=== PATIENT | male | born 1970 | race Caucasian/White ===

== ENCOUNTER 2018-01-13 17:24 | Emergency (ER) | payer OTHER ==
--- NOTE | 2018-01-13 17:48 | UC ---
Throat Pain/Nasal Jigar HPI - HPI Summary HPI Summary: 47 y/o male presents to the urgent care c/o sore throat w/ mild nasal congestion and dry cough for the past 2 days. Pt noticed this morning his tongue has a white coat. Pain w/ swallowing is 6/10. Pt has taken Nyquill PO to alleviate symptoms. Pt feels fatigue today. Pt denies fever, SOB, chest pain, wheezing,abdominal pain, N/V/D. - History of Current Complaint Stated Complaint: THROAT COMPLAINT Time Seen by Provider: 01/13/18 17:47 Hx Obtained From: Patient Onset/Duration: Gradual Onset, Lasting Days - 2 days, Still Present, Worse Since - today Severity: Moderate Pain Intensity: 6 Pain Scale Used: 0-10 Numeric Cough: Nonproductive Associated Signs & Symptoms: Positive: Dysphagia, Nasal Discharge, Fever - low grade fever first day - Epiglottits Risk Factors Epiglottis Risk Factors: Negative - Allergies/Home Medications Allergies/Adverse Reactions: Allergies Allergy/AdvReac Type Severity Reaction Status Date / Time No Known Allergies Allergy Verified 01/13/18 17:49 Home Medications: Home Medications lamoTRIgine TAB(*) [Lamictal TAB(*)] 100 mg PO BEDTIME 01/13/18 [History Confirmed 01/13/18] PMH/Surg Hx/FS Hx/Imm Hx Previously Healthy: Yes Neurological History: Seizures - Surgical History Surgical History: None - Family History Known Family History: Positive: None - Pt denies FMHX Negative: Cardiac Disease, Hypertension, Diabetes - Social History Occupation: Employed Full-time Lives: With Family Alcohol Use: None Substance Use Type: None Smoking Status (MU): Never Smoked Tobacco Have You Smoked in the Last Year: No - Immunization History Most Recent Influenza Vaccination: Not the 2016/2016 Season Most Recent Tetanus Shot: 11/27/15 Review of Systems Constitutional: Negative Skin: Negative Eyes: Negative ENT: Sore Throat, Nasal Discharge, Sinus Congestion Respiratory: Cough - dry Cardiovascular: Negative Gastrointestinal: Negative Genitourinary: Negative Motor: Negative Neurovascular: Negative Musculoskeletal: Negative Neurological: Negative Psychological: Negative Is Patient Immunocompromised?: No All Other Systems Reviewed And Are Negative: Yes Physical Exam - Summary Physical Exam Summary: VITAL SIGNS: Reviewed. GENERAL: Patient is a well developed and nourished male who is sitting comfortable in the examining table. Patient is not in any acute respiratory distress. HEAD AND FACE: No signs of trauma. No ecchymosis, hematomas or skull depressions. No sinus tenderness. EYES: PERRLA, EOMI x 2, No injected conjunctiva, no nystagmus. No photophobia. EARS: Hearing grossly intact. Ear canals and tympanic membranes are within normal limits. MOUTH: Positive pharynx with erythema, no exudates, mild palatal petechiae. B/L tonsillar enlargement with no exudate. Uvula in midline. No Tenderness to percussion of teeth . tongue w. mild creamy white plaques adhered. NECK: Supple, trachea is midline, Positive anterior cervical lymphadenopathy, no JVD, no carotid bruit, no c-spine tenderness, neck with full ROM. No meningeal signs, no Kernig's or brudzinskis signs. CHEST: Symmetric, no tenderness at palpation LUNGS: Clear to auscultation bilaterally. No wheezing or crackles. CVS: Regular rate and rhythm, S1 and S2 present, no murmurs or gallops appreciated. ABDOMEN: Soft, non-tender. No signs of distention. No rebound no guarding, and no masses palpated. Bowel sounds are normal. EXTREMITIES: FROM in all major joints, no edema, no cyanosis or clubbing. NEURO: Alert and oriented x 3. No acute neurological deficits. Speech is normal and follows commands. SKIN: Dry and warm Triage Information Reviewed: Yes Throat Pain/Nasal Course/Dx - Course Course Of Treatment: 47 y/o male presents to the urgent care c/o sore throat w/ mild nasal congestion and dry cough for the past 2 days. Pt noticed this morning his tongue has a white coat. Pain w/ swallowing is 6/10. Pt has taken Nyquill PO to alleviate symptoms. Pt feels fatigue today. Pt denies fever, SOB, chest pain, wheezing,abdominal pain, N/V/D. Hx obtained. Pt w/ oral Candidiasis and pharyngitis on examination. RApid strep ordered: negative.Pt Rx Nystatin PO switch and swallow and Chlorhexidine and Ibuprofen PO as directed below to alleviate symptoms. Pt advised to rest, increase fluid intake, eat well and avoid strenuous exercise. If symptoms do not improve or worsen advised to return to the urgent care or f/u with her PCP in 3 days for further evaluation and treatment. Pt understood and agreed with plan of care. - Differential Dx/Diagnosis Differential Diagnosis/HQI/PQRI: Laryngitis, Mononucleosis, Pharyngitis, Tonsillitis, Other - oral thrush Provider Diagnoses: 1- Oral candidiasis. 2- Pharyngitis Discharge - Sign-Out/Discharge Documenting (check all that apply): Patient Departure - D/C home All imaging exams completed and their final reports reviewed: No Studies - Discharge Plan Condition: Stable Disposition: HOME Prescriptions: Chlorhexidine MOUTHWASH 0.12%* [Peridex Mouth Wash 0.12%*] 15 ml .SEE ORDER BID #1 oral.soln Ibuprofen TAB* [Motrin TAB* 600 MG] 600 mg PO Q6H PRN #30 tab PRN Reason: Sore Throat Nystatin SUSPENSION ORAL SYR* 100,000 units PO QID #1 c Patient Education Materials: Oral Candidiasis (ED) Referrals: Kristin Grossman PA [Primary Care Provider] - 3 Days Additional Instructions: 1- Please take Nystatin oropharyngeal as directed. Also take Chlorhexadine oropharyngeal as directed to alleviate pain 2-Please take ibuprofen PO q6-8hrs prn as instructed after meals to alleviate pain and swelling. Increase fluid intake, eat well, rest and avoid strenuous exercise 3-If symptoms do not improve or worsen please return to the urgent care or f/u with your PCP in 3 days for further evaluation and treatment. - Billing Disposition and Condition Condition: STABLE Disposition: Home
[2018-01-13 17:56] VITALS: BP 129/86
== END 2018-01-13 18:41 | disposition home or self-care (01) ==
LOC: UCCORT 17:24
DX: B37.0 Candidal stomatitis (principal); J02.9 Acute pharyngitis, unspecified
CPT/HCPCS: 87651; 99212; G0463